=== PATIENT | female | born 1960 | race Caucasian/White ===

== ENCOUNTER 2018-05-02 20:31 | Emergency (ER) | payer BC, OTHER ==
[~2018-05-02] VITALS: Ht 165.1 cm; Wt 82.0 kg
[~2018-05-02 20:31] MED LIST: IBUP600T26 PO; ORPH100T PO
[2018-05-02 20:57] VITALS: BP 125/76; PULSE 75; RESP 16; TEMP 98.9; O2SAT 96
[2018-05-02] MEDS ORDERED: IBUPROFEN 400 MG TAB PO ONE (23:30)
[2018-05-02] MEDS ORDERED: NAPR-810 PO (23:42)
--- NOTE | 2018-05-02 23:42 | PD ---
HPI Chief Complaint: Injury Time Seen by Provider: 23:00 Travel History International Travel<30 days: No Contact w/Intl Traveler<30days: No Traveled to known affect area: No History of Present Illness HPI The patient is a 57 year old female who presents to the [facility] emergency department with a history of losing her balance while walking with a resident at the [place] [facility] prior to arrival. The patient reports that she works at the [place] [facility]. Her and the resident fell into a corner. The patient reports that she did not hit her head or lose consciousness. She denies having any neck pain, paresthesias, or weakness to her extremities. She reports that she injured her left knee by hyperflexing it and inverted her right ankle. She reports having right foot pain and anterior left knee pain. The patient denies having any swelling or bruising that she has noted, however she has not taken off her shoes. She reports that this happened just prior to arrival. On review of systems otherwise, the patient denies having any cough, congestion, chest pain, shortness of breath, abdominal pain, vomiting, diarrhea , urinary symptoms, or neurologic symptoms. [facility] Past Medical History Narrative Medical The patient's past medical history is reportedly significant for bilateral foot stress fractures many years ago. Anxiety: Yes Reproductive: Yes (bronchitis) Immunizations Current: Yes Tetanus Vaccination: > 5 Years Influenza Vaccination: No ?: Unknown Tubal Ligation: Yes (1990) Past Surgical History Narrative Surgical The patient's past surgical history is significant for bilateral tubal ligation. Gynecologic Surgery: Yes (tubal ligation) Social History Alcohol Use: Yes (TWICE A WEEK) Tobacco Use: Yes (11/09 PPD) Allergies-Medications (Allergen,Severity, Reaction): Coded Allergies: No Known Allergies (Verified Adverse Reaction, Unknown, 05/02/18) Reported Meds & Prescriptions Reported Meds & Active Scripts Active EC-Naprosyn (Naproxen) 500 Mg Tabdr 500 Mg PO BID PRN Ibuprofen 600 Mg Tab 600 Mg PO TID Norflex (Orphenadrine Citrate) 100 Mg Anjali 100 Mg PO BID Review of Systems Except as stated in HPI: all other systems reviewed are Neg General / Constitutional: No: Fever Eyes: No: Visual changes HENT: No: Headaches Cardiovascular: No: Chest Pain or Discomfort Respiratory: No: Shortness of Breath Gastrointestinal: No: Abdominal Pain Genitourinary: No: Dysuria Musculoskeletal: Positive: Myalgias, Arthralgias, Pain, No: Limited ROM, Edema Skin: No Rash Neurologic: No: Weakness Psychiatric: No: Depression Endocrine: No: Polydipsia Hematologic/Lymphatic: No: Easy Bruising Physical Exam Narrative General: The patient is a well-developed malnourished female in no acute distress. Head and Neck exam: Head is normocephalic atraumatic. Eyes: EOMI, pupils are equal round and reactive to light. Nose: Midline septum with pink mucous membranes Mouth: Dentition unremarkable. Moist mucus membranes. Posterior oropharynx is not erythematous. No tonsillar hypertrophy. Uvula midline. Airway patent. Neck: No spinous process tenderness to palpation. No step-off or crepitus. No erythema or ecchymosis. No palpable lymphadenopathy. No nuchal rigidity. No thyromegaly. Cardiovascular: Regular rate and rhythm without murmurs, gallops, or rubs. No pulse deficit to the extremities. Lungs: Clear to auscultation bilaterally. No wheezes, rhonchi, or rales. Abdomen: Soft, without tenderness to palpation in all 4 quadrants of the abdomen. No guarding, rebound, or rigidity. Normal bowel sounds are audible. No tenderness on palpation of McBurney's point. Extremities: No clubbing, cyanosis, or edema. 2+ pulses in all 4 extremities. The area of interest is the left knee and right foot and ankle. The patient has no swelling of either location noted. No ecchymosis or erythema. The patient on examination of the right foot reports having tenderness on palpation along the proximal aspect of the area between the third and fourth metatarsal. The patient also reports having some discomfort on palpation over the right lateral malleolus. The patient reports on examination of the left knee to have tenderness on palpation anteriorly. The patient has no ligament laxity on testing of the left knee and right ankle. The patient has intact sensation over all digits. The patient has less than 3 second capillary refill. The patient has full range of motion noted. Back: No spinous process tenderness to palpation. No costovertebral angle tenderness to palpation. Neurologic Exam: Grossly nonfocal. Skin Exam: No rash noted. Intact skin that is warm and dry. Data Data Last Documented VS Vital Signs Date Time Temp Pulse Resp B/P (MAP) Pulse Ox O2 Delivery O2 Flow Rate FiO2 05/02/18 20:57 98.9 75 16 125/76 (92) 96 Orders Orders Ankle, Limited (Ap&Lat) (05/02/18 23:29) Foot, Complete ([id number]) (05/02/18 23:29) Knee, Complete (4vws) (05/02/18 23:29) Ice/Cold Pack (05/02/18 23:29) Ibuprofen (Motrin) (05/02/18 23:30) Splint Or Brace Apply/Monitor (05/03/18 00:49) MDM Medical Decision Making Medical Screen Exam Complete: Yes Emergency Medical Condition: Yes Medical Record Reviewed: Yes Differential Diagnosis Fracture, versus contusion, versus sprain, versus internal derangement of the knee Narrative Course During the course of the patient's emergency department visit, the patient's history, examination, and differential diagnosis were reviewed with the patient. 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 The patient will have an x-ray of the right ankle, right foot, left knee. The patient was initially provided ibuprofen for pain, and ice pack for the areas of discomfort. Radiology studies were reviewed and remarkable for Last Impressions Knee X-Ray 05/02/182328 Signed Impressions: CONCLUSION: Mild joint effusion. Foot X-Ray 05/02/182328 Signed Impressions: CONCLUSION: No acute abnormality is seen. Ankle X-Ray 05/02/182328 Signed Impressions: CONCLUSION: No acute abnormality seen. Calcaneal spur. The patient reports that she has seen Dr. Gomez in the past, a local orthopedic physician and prefers to follow back up with him regarding her injuries. I explained that as she is under Workmen's Compensation she may be required to see a different orthopedic physician. I recommended rice therapy. She was instructed that if she continues to have pain after 1 week of anti- inflammatory pain medication and rice therapy, she should follow-up with an orthopedic physician for reexamination. The patient is resting comfortably and feels better, is alert and in no distress. The patient's results and examination findings were discussed with the patient. The history, exam, diagnostic testing, and current condition do not suggest any significant pathology to warrant further testing, continued ED treatment, admission, or surgical evaluation at this point. The vital signs have been stable. The patient does not have uncontrollable pain, intractable vomiting, or other significant symptoms. The patient's condition is stable and appropriate for discharge. The patient will pursue further outpatient evaluation with a primary care physician or other designated or consulting physician as indicated in the discharge instructions. The patient is instructed to report back to the emergency department immediately for reexamination in the mean time if she develops any new or worsening signs or symptoms. The patient expressed understanding and was agreeable with this plan. Diagnosis Primary Impression: Foot pain, right Additional Impressions: Knee pain, left Qualified Codes: M25.562 - Pain in left knee Fall Qualified Codes: W19.XXXA - Unspecified fall, initial encounter Referrals: Michael Gomez MD 1 week Orthopedist 1 week Patient Instructions: General Instructions Med/Other Pt SpecificInfo: Prescription(s) given Scripts Naproxen DR (EC-Naprosyn) 500 Mg Tabdr 500 MG PO BID Y for PAIN GREATER THAN 5, #10 TAB 0 Refills Prov: Suha Saini MD 05/02/18 Disposition: 01 DISCHARGE HOME Condition: Stable Suha Saini MD May 02, 2018 23:42
--- NOTE | 2018-05-03 00:21 | RADRPT ---
EXAM DATE: 05/02/2018 11:54 PM EDT AGE/SEX: 57 years / Female INDICATIONS: Fall, W/c. Pain to lateral side of right foot. CLINICAL DATA: This is the patient's initial encounter. Patient reports that signs and symptoms have been present for 1 day and indicates a pain score of 5/10. MEDICAL/SURGICAL HISTORY: None. None. COMPARISON: No prior exams available for comparison. FINDINGS: Bony structures are intact and in normal alignment. Osseous density is normal. Soft tissues are unre markable. No radiopaque foreign bodies seen. There is a calcaneal spur at the plantar aponeurosis at tachment site. CONCLUSION: No acute abnormality is seen. Electronically signed by: Alvaro Chavez MD 05/03/2018 12:20 AM EDT
--- NOTE | 2018-05-03 00:22 | RADRPT ---
EXAM DATE: 05/02/2018 11:57 PM EDT AGE/SEX: 57 years / Female INDICATIONS: Pain to anterior part of left knee, from fall W/C. CLINICAL DATA: This is the patient's initial encounter. Patient reports that signs and symptoms have been present for 1 day and indicates a pain score of 6/10. MEDICAL/SURGICAL HISTORY: None. None. COMPARISON: No prior exams available for comparison. FINDINGS: No fracture is seen. The knee joint is aligned. There is mild joint effusion. CONCLUSION: Mild joint effusion. Electronically signed by: Alvaro Chavez MD 05/03/2018 12:21 AM EDT
--- NOTE | 2018-05-03 00:22 | RADRPT ---
EXAM DATE: 05/02/2018 11:52 PM EDT AGE/SEX: 57 years / Female INDICATIONS: Fall W/C pain to lateral part of right ankle. CLINICAL DATA: This is the patient's initial encounter. Patient reports that signs and symptoms have been present for 1 day and indicates a pain score of 5/10. MEDICAL/SURGICAL HISTORY: None. None. COMPARISON: No prior exams available for comparison. FINDINGS: Bony structures are intact and in normal alignment. Joints are intact without dislocation or signifi cant arthropathy. There is a calcaneal spur at the plantar aponeurosis attachment site. Osseous densi ty is normal. Soft tissues are unremarkable. No radiopaque foreign bodies seen. CONCLUSION: No acute abnormality seen. Calcaneal spur. Electronically signed by: Alvaro Chavez MD 05/03/2018 12:21 AM EDT
== END 2018-05-03 02:35 | disposition home or self-care (01) ==
LOC: NEPC 20:31
DX: M79.671 Pain in right foot (principal); M25.562 Pain in left knee
CPT/HCPCS: 73564; 73600; 73630; 99283

== ENCOUNTER 2018-08-01 23:45 | Inpatient (IN) ==
--- NOTE | 2018-08-02 00:01 | ED ---
HPI General Chief Complaint: Shortness of Breath/Dyspnea Stated Complaint: sob Time Seen by Provider: 08/01/18 23:48 Source: patient and EMS Mode of arrival: EMS History of Present Illness The patient is a 58-year-old female that was diagnosed with COPD 2 years ago resented with complaint of shortness of breath. As per EMS she was 88% on room air they gave her Solu-Medrol and 7.5 mg of DuoNeb's. Patient is not on home O2 and just has pleural air at home. She quit smoking last week. Denies any fever or chills at home. MD Complaint: shortness of breath Onset (ago): day(s) (2) Severity: severe Consistency/Duration: constant Relieving factors: nothing Exacerbating factors: exertion Known history of: COPD Associated symptoms: denies other symptoms Treatment prior to arrival: oxygen, bronchodilator and other (Solu-Medrol 125 mg IV push) Related Data Home oxygen amount: none Home Medications Medication Instructions Recorded Confirmed Unable to Obtain Home Meds 08/02/18 08/02/18 Allergies Allergy/AdvReac Type Severity Reaction Status Date / Time No Known Allergies Allergy Verified 08/01/18 23:58 Review of Systems ROS: all other systems reviewed are negative [facility] Medical History Medical History COPD (chronic obstructive pulmonary disease) (Acute) Social History Social History Substance History: No History of Abuse Second Hand Smoke Exposure: Yes Smoking Status: Former smoker Tobacco Type: Cigarettes How Often Do You Have a Drink Containing Alcohol: 2 to 4 times a month Recent Travel in [facility] within the Last 8 Weeks: No Recent Out of Country Travel within the Last 8 Weeks: No Immunization History Tetanus Immunization: <5 Years Hx Influenza Vaccine This Season: Yes Exam Narrative Exam Narrative: GENERAL: Alert and oriented and distress from respiratory compromise SKIN: Focused skin assessment warm/dry. HEAD: Atraumatic. Normocephalic. EYES: Pupils equal and round. No scleral icterus. No injection or drainage. ENT: No nasal bleeding or discharge. Mucous membranes pink and moist. NECK: Trachea midline. No JVD. CARDIOVASCULAR: Tachycardia with regular rhythm. No murmur appreciated. RESPIRATORY: Use of accessory muscles with severe inspiratory expiratory wheezes diffusely bilaterally. Poor airflow. Tachypnea GASTROINTESTINAL: Abdomen soft, non-tender, nondistended. Hepatic and splenic margins not palpable. MUSCULOSKELETAL: No obvious deformities. No clubbing. No cyanosis. No edema. NEUROLOGICAL: Awake and alert. No obvious cranial nerve deficits. Motor grossly within normal limits. Normal speech. PSYCHIATRIC: Appropriate mood and affect; insight and judgment normal. Course Hospital Course: Patient with COPD exacerbation. Received nebs and steroids by EMS. Will get another nebulizing treatment here in the ED. Reevaluation(s) Reevaluation #1: Improved of her breathing treatments however she still is pretty tight and has end expiratory wheezes at this time. O2 saturations are 94 % on 3 L via nasal cannula. Time: 01:26 Initial Documented Vital Signs Pulse Rate 115 H 08/01/18 23:48 Respiratory Rate 22 08/01/18 23:48 Blood Pressure 158/70 H 08/01/18 23:48 Pulse Oximetry 95 08/01/18 23:48 Last Documented Vital Signs Pulse Rate 95 H 08/02/18 01:35 Respiratory Rate 18 08/02/18 01:35 Blood Pressure 158/70 H 08/01/18 23:53 Pulse Oximetry 93 L 08/02/18 01:35 Medical Decision Making MDM Narrative Medical decision making narrative: Patient with COPD exacerbation and minimal response to bronchodilators initially. No signs of infectious process at this time. She does have leukocytosis may be secondary to acute phase reactant. Does not appear septic. Gases reveal hypercapnia with a PCO2 of 44 ABGs 7.35. Suggestive of mild respiratory acidosis. Medical Screen Exam Complete: Yes Emergency Medical Condition: Yes Medical Records Medical records reviewed: Yes I reviewed the patient's medical records. Lab Data Lab results reviewed: Yes I reviewed the patient's lab results. Result diagrams: 08/02/18 00:00 08/02/18 00:00 Lab Results 08/02/18 08/02/18 08/02/18 Range/Units 00:00 00:00 00:00 WBC 14.1 H (4.0-11.0) th/mm3 RBC 4.59 (4.00-5.30) mil/mm3 Hgb 13.2 (11.6-15.3) gm/dL Hct 41.1 (35.0-46.0) % MCV 89.5 (80.0-100.0) fL MCH 28.7 (27.0-34.0) pg MCHC 32.1 (32.0-36.0) % RDW 14.4 (11.6-17.2) % Plt Count 314 (150-450) th/mm3 MPV 9.1 (7.0-11.0) fL Neut % (Auto) 70.7 H (16.0-70.0) % Lymph % (Auto) 20.4 (9.0-44.0) % Colbert % (Auto) 8.7 H (0.0-8.0) % Eos % (Auto) 0.1 (0.0-4.0) % Baso % (Auto) 0.1 (0.0-2.0) % Neut # (Auto) 10.0 H (1.8-7.7) th/mm3 Lymph # (Auto) 2.9 (1.0-4.8) th/mm3 Colbert # (Auto) 1.2 H (0.0-0.9) th/mm3 Eos # (Auto) 0.0 (0.0-0.4) th/mm3 Baso # (Auto) 0.0 (0.0-0.2) th/mm3 WBC Differential . Differential Comment Auto diff final PT 9.7 L (9.8-11.6) sec INR 1.0 Ratio APTT 25.3 (24.3-30.1) sec Puncture Site Patient Temperature O2 Saturation (90-100) % ABG pH (7.380-7.420) ABG pCO2 (38-42) mmHg ABG pO2 (61-120) mmHg ABG HCO3 (22-26) mmol/L ABG O2 Content (12.0-20.0) Vol % ABG Base Excess (-2-2) mmol/L ABG Methemoglobin (0-2) % Fortunato Test Hemoglobin (12.0-16.0) G/DL Carboxyhemoglobin (0-4) % O2 Delivery Device Liter Flow L/M Critical Value Sodium 145 (136-145) meq/L Potassium 3.3 L (3.5-5.1) meq/L Chloride 108 H (98-107) meq/L Carbon Dioxide 26.5 (21.0-32.0) meq/L Anion Gap 11 (5-15) meq/L BUN 16 (7-18) mg/dL Creatinine 0.89 (0.50-1.00) mg/dL Estimated GFR 66 L (>89) mL/min Random Glucose 110 H (74-106) mg/dL Calcium 9.1 (8.5-10.1) mg/dL Total Creatine Kinase 239 H (26-192) U/L CK-MB (CK-2) 2.0 (0.5-3.6) ng/mL CK-MB (CK-2) % 0.8 (0.0-4.0) % Troponin I Less than 0.02 L (0.02-0.05) ng/mL B-Natriuretic Peptide (0-100) pg/mL 08/02/18 08/02/18 Range/Units 00:00 00:03 WBC (4.0-11.0) th/mm3 RBC (4.00-5.30) mil/mm3 Hgb (11.6-15.3) gm/dL Hct (35.0-46.0) % MCV (80.0-100.0) fL MCH (27.0-34.0) pg MCHC (32.0-36.0) % RDW (11.6-17.2) % Plt Count (150-450) th/mm3 MPV (7.0-11.0) fL Neut % (Auto) (16.0-70.0) % Lymph % (Auto) (9.0-44.0) % Colbert % (Auto) (0.0-8.0) % Eos % (Auto) (0.0-4.0) % Baso % (Auto) (0.0-2.0) % Neut # (Auto) (1.8-7.7) th/mm3 Lymph # (Auto) (1.0-4.8) th/mm3 Colbert # (Auto) (0.0-0.9) th/mm3 Eos # (Auto) (0.0-0.4) th/mm3 Baso # (Auto) (0.0-0.2) th/mm3 WBC Differential Differential Comment PT (9.8-11.6) sec INR Ratio APTT (24.3-30.1) sec Puncture Site Right radial Patient Temperature 98.6 O2 Saturation 92 (90-100) % ABG pH 7.35 L (7.380-7.420) ABG pCO2 44 H (38-42) mmHg ABG pO2 70 (61-120) mmHg ABG HCO3 24 (22-26) mmol/L ABG O2 Content 16.7 (12.0-20.0) Vol % ABG Base Excess -0.8 (-2-2) mmol/L ABG Methemoglobin 0.7 (0-2) % Fortunato Test Present Hemoglobin 12.9 (12.0-16.0) G/DL Carboxyhemoglobin 0.9 (0-4) % O2 Delivery Device Nasal cannula Liter Flow 3.00 L/M Critical Value No Sodium (136-145) meq/L Potassium (3.5-5.1) meq/L Chloride (98-107) meq/L Carbon Dioxide (21.0-32.0) meq/L Anion Gap (5-15) meq/L BUN (7-18) mg/dL Creatinine (0.50-1.00) mg/dL Estimated GFR (>89) mL/min Random Glucose (74-106) mg/dL Calcium (8.5-10.1) mg/dL Total Creatine Kinase (26-192) U/L CK-MB (CK-2) (0.5-3.6) ng/mL CK-MB (CK-2) % (0.0-4.0) % Troponin I (0.02-0.05) ng/mL B-Natriuretic Peptide 51 (0-100) pg/mL Imaging Data Radiologist's impression: Chest X-Ray 08/01/18 23:53 CONCLUSION: No acute cardiopulmonary disease identified. ECG Data Attestation: I personally reviewed and interpreted this ECG as follows: Interpretation: Sinus tachycardia 106 bpm SC interval 170 ms QTc interval [address]-T wave abnormalities. Abnormal EKG. No STEMI Discharge Plan Discharge Disposition Patient Disposition: 30 Still Patient Discharge Condition Condition: Stable Discharge Details Diagnosis: Acute exacerbation of chronic obstructive pulmonary disease (COPD) Physicians Team ED Provider: Jose Pepe Primary Care Provider: UNKNOWN, Rxs /Orders / Referrals /Forms Prescriptions: No Action Unable to Obtain Home Meds RF: 0 Discharge Interventions Interventions: Vital Signs Last Done: 08/01/18 23:53 Status ED Status: Admitted Patient
[2018-08-02 00:20] LABS: ABG Base Excess -0.8 mmol/L (-2-2); ABG PCO2 44 mmHg (38-42); ABG PO2 70 mmHg (61-120)
[2018-08-02 00:24] LABS: Baso % (Auto) 0.1 % (0.0-2.0); Eos % (Auto) 0.1 % (0.0-4.0); Hematocrit 41.1 % (35.0-46.0); Hemoglobin 13.2 gm/dL (11.6-15.3); Lymph # (Auto) 2.9 th/mm3 (1.0-4.8); Lymph % (Auto) 20.4 % (9.0-44.0); Mean Corpuscular HGB Conc 32.1 % (32.0-36.0); Mean Corpuscular Hemoglobin 28.7 pg (27.0-34.0); Mean Corpuscular Volume 89.5 fL (80.0-100.0); Mean Platelet Volume 9.1 fL (7.0-11.0); Mono # (Auto) 1.2 th/mm3 (0.0-0.9); Mono % (Auto) 8.7 % (0.0-8.0); Neut % (Auto) 70.7 % (16.0-70.0); Platelet Count 314 th/mm3 (150-450); Red Blood Count 4.59 mil/mm3 (4.00-5.30); Red Cell Distribution Width 14.4 % (11.6-17.2); White Blood Count 14.1 th/mm3 (4.0-11.0)
--- NOTE | 2018-08-02 00:26 | XR ---
EXAM DATE: 08/02/2018 12:22 AM EDT AGE/SEX: 58 years / Female INDICATIONS: Short of breath. CLINICAL DATA: This is the patient's initial encounter. Patient reports that signs and symptoms have been present for 1 day and indicates a pain score of 0/10. MEDICAL/SURGICAL HISTORY: None. None. COMPARISON: [facility], XR CHEST PA AND LAT, 07/31/2018. . FINDINGS: Single AP view of the chest. The lungs are clear. Cardiomediastinal silhouette within nor mal limits. No evidence of pleural effusion or pneumothorax. CONCLUSION: No acute cardiopulmonary disease identified. Electronically signed by: Ifeanyi Hansen MD 08/02/2018 12:24 AM EDT
[2018-08-02 00:34] LABS: Anion Gap 11 meq/L (5-15); Blood Urea Nitrogen 16 mg/dL (7-18); Calcium 9.1 mg/dL (8.5-10.1); Carbon Dioxide 26.5 meq/L (21.0-32.0); Chloride 108 meq/L (98-107); Glomerular Filtration Rate 66 mL/min (>89); Glucose,Random 110 mg/dL (74-106); Potassium 3.3 meq/L (3.5-5.1); Sodium 145 meq/L (136-145)
[2018-08-02 00:38] LABS: Creatine Kinase 239 U/L (26-192)
[2018-08-02 00:50] LABS: CKMB Percent 0.8 % (0.0-4.0)
[2018-08-02 00:52] LABS: Activated Partial Thrombo Time 25.3 sec (24.3-30.1); Prothrombin Time 9.7 sec (9.8-11.6)
[2018-08-02] MEDS ORDERED: Bisacodyl 10 MG Supp RECTAL PRN (02:08)
[2018-08-02] MEDS: MethylPREDNISolone Sod Succinate Inj 125 MG/2 ML Vial IV.PUSH SCH ×4 (03:16→22:33)
--- NOTE | 2018-08-02 05:27 | P.HPIM ---
History of Present Illness Primary Care Physician: UNKNOWN History of Present Illness: 58-year-old female with a history of COPD who presents with a 2 day history of progressively worsening shortness of breath, cough productive of nonvisualized sputum. Patient went to urgent care 2 days ago and has been started on prednisone which has not been helping. Patient denies any fevers, chills, chest pain. She has a [id number] history of smoking cigarettes, however quit last week. Inpatient Certification: I certify that the inpatient services were ordered in accordance with Medicare regulations governing the order. This includes certification that hospital inpatient services are reasonable and necessary and in the case of services not specified as inpatient-only under 42 CFR 419.22(n), that they are appropriately provided as inpatient services in accordance to with the 2-midnight benchmark under 43 CFR 412.3(e) Estimated Total Length of Stay (Days): 3 Plans for Post Hospital Care: Home Review of Systems All other systems reviewed negative except as stated [facility] - History History Provided By: Patient - Medical History Medical History: Medical History (Last Reviewed 08/02/18 @ 00:00 by Jose Pepe DO) COPD (chronic obstructive pulmonary disease) - Surgical History Surgical History: Surgical History (Last Updated 08/02/18 @ 05:22 by Michael Macdonald MD) History of tubal ligation - Family History Family History: Family History (Last Updated 08/02/18 @ 05:22 by Michael Macdonald MD) Other Adopted - Tobacco History Second Hand Smoke Exposure: Yes Tobacco Use In Past 30 Days: Yes Smoking Status: Former smoker Tobacco Type: Cigarettes - Alcohol History How Often Do You Have a Drink Containing Alcohol: 2 to 4 times a month - Substance Use History Substance History: No History of Abuse - Travel History Recent Travel in the [place] Within the Last 8 Weeks: No Recent Travel Out of the Country Within the Last 8 Weeks: No - Immunization History Tetanus Immunization: <5 Years Hx Influenza Vaccine This Season: Yes Medications and Allergies Active Medications: Active Medications Al Hydroxide/Mg Hydroxide (Milk Of Raul Liq) 30 ml PO Q12H PRN PRN Reason: Mild Constipation Albuterol (Albuterol Neb (Prn)) 2.5 mg NEB Q2HR NEB PRN PRN Reason: SHORTNESS OF BREATH Albuterol (Duoneb Neb (Brittanie)) 1 ampul NEB Q6HR NEB BRITTANIE Last Admin: 08/02/18 04:05 Dose: 1 ampul Bisacodyl (Dulcolax Supp) 10 mg RECTAL DAILY PRN PRN Reason: SEVERE CONSITIPATION Lactulose (Lactulose Liq) 30 ml PO DAILY PRN PRN Reason: SEVERE CONSITIPATION Levofloxacin (Levaquin) 750 mg PO DAILY [facility] Methylprednisolone Sodium Succinate (Solumedrol Inj) 60 mg IV.PUSH Q6H [facility] Last Admin: 08/02/18 03:16 Dose: 60 mg Sennosides (Senokot) 17.2 mg PO Q12H PRN PRN Reason: Moderate Constipation Sodium Chloride (Ns Flush) 2 ml IV.FLUSH BID BRITTANIE Sodium Chloride (Ns Flush) 2 ml IV.FLUSH PRN PRN PRN Reason: FLUSH AFTER USING IV ACCESS Allergies Allergy/AdvReac Type Severity Reaction Status Date / Time No Known Allergies Allergy Verified 08/01/18 23:58 Home Medications Medication Instructions Recorded Confirmed Type Unable to Obtain Home Meds 08/02/18 08/02/18 History Exam Vital signs: Vital Signs 08/01/18 23:48 08/01/18 23:53 08/01/18 23:57 Pulse Rate 115 H 118 H Respiratory Rate 22 20 Blood Pressure 158/70 H 158/70 H Pulse Oximetry 95 95 94 L 08/02/18 00:13 08/02/18 01:35 08/02/18 03:18 Pulse Rate 95 H 84 Respiratory Rate 18 20 Blood Pressure 107/63 Pulse Oximetry 95 93 L 95 08/02/18 03:53 08/02/18 04:04 Pulse Rate 107 H 80 Respiratory Rate 20 18 Blood Pressure 107/53 L Pulse Oximetry 95 Intake & Output 08/01/18 08/01/18 08/02/18 06:59 18:59 06:59 Intake Total 240 / 240 Balance 240 / 240 Weight 81.647 kg Intake: Oral 240 / 240 Other: # Voids 1 Narrative: GENERAL: Patient sitting up in bed. Appears comfortable. SKIN: Warm and dry. HEAD: Atraumatic. Normocephalic. EYES: Pupils equal and round. No scleral icterus. No injection or drainage. ENT: No nasal bleeding or discharge. Mucous membranes pink and moist. NECK: Trachea midline. No JVD. CARDIOVASCULAR: Regular rate and rhythm. RESPIRATORY: No accessory muscle use. Wheezes bilaterally. Breath sounds equal bilaterally. GASTROINTESTINAL: Abdomen soft, non-tender, nondistended. Hepatic and splenic margins not palpable. MUSCULOSKELETAL: Extremities without clubbing, cyanosis, or edema. No obvious deformities. NEUROLOGICAL: Awake and alert. No obvious cranial nerve deficits. Motor grossly within normal limits. Five out of 5 muscle strength in the arms and legs. Normal speech. PSYCHIATRIC: Appropriate mood and affect; insight and judgment normal. Results - Labs CBC & Chem 7: 08/02/18 00:00 08/02/18 00:00 Labs: Short CBC 08/02/18 Range/Units 00:00 WBC 14.1 H (4.0-11.0) th/mm3 Hgb 13.2 (11.6-15.3) gm/dL Hct 41.1 (35.0-46.0) % Plt Count 314 (150-450) th/mm3 BMP 08/02/18 00:00 Sodium 145 Potassium 3.3 L Chloride 108 H Carbon Dioxide 26.5 BUN 16 Creatinine 0.89 Calcium 9.1 Cardiac Enzymes 08/02/18 Range/Units 00:00 Total Creatine Kinase 239 H (26-192) U/L CK-MB (CK-2) 2.0 (0.5-3.6) ng/mL Troponin I Less than 0.02 L (0.02-0.05) ng/mL - Imaging Impressions Chest X-Ray 08/01/18 23:53 CONCLUSION: No acute cardiopulmonary disease identified. Caprini VTE Risk Assessment Caprini VTE Risk Assessment: No/Low Risk (score <= 1) Caprini Risk Assessment Model: Point Value = 1 Point Value = 2 Point Value = 3 Point Value = 5 Age 41-60 Minor surgery BMI > 25 kg/m2 Swollen legs Varicose veins or History of unexplained or recurrent spontaneous Oral contraceptives or hormone replacement Sepsis (< 1 month) Serious lung disease, including pneumonia (< 1 month) Abnormal pulmonary function Acute myocardial infarction Congestive heart failure (< 1 month) History of inflammatory bowel disease Medical patient at bed rest Age 61-74 Arthroscopic surgery Major open surgery (> 45 min) Laparoscopic surgery (> 45 min) Malignancy Confined to bed (> 72 hours) Immobilizing plaster cast Central venous access Age >= 75 History of VTE Family history of VTE Factor V Leiden Prothrombin [id number] Lupus anticoagulant Anticardiolipin antibodies Elevated serum homocysteine Heparin-induced thrombocytopenia Other congenital or acquired thrombophilia Stroke (< 1 month) Elective arthroplasty Hip, pelvis, or leg fracture Acute spinal cord injury (< 1 month) Prophylaxis Regimen: Total Risk Factor Score Risk Level Prophylaxis Regimen 0-1 Low Early ambulation 2 Moderate Order ONE of the following: *Sequential Compression Device (SCD) *Heparin 5000 units SQ BID 3-4 Higher Order ONE of the following medications: *Heparin 5000 units SQ TID *Enoxaparin/Lovenox 40 mg SQ daily (WT < 150 kg, CrCl > 30 mL/min) *Enoxaparin/Lovenox 30 mg SQ daily (WT < 150 kg, CrCl > 10-29 mL/min) *Enoxaparin/Lovenox 30 mg SQ BID (WT < 150 kg, CrCl > 30 mL/min) AND/OR *Sequential Compression Device (SCD) 5 or more Highest Order ONE of the following medications: *Heparin 5000 units SQ TID (Preferred with Epidurals) *Enoxaparin/Lovenox 40 mg SQ daily (WT < 150 kg, CrCl > 30 mL/min) *Enoxaparin/Lovenox 30 mg SQ daily (WT < 150 kg, CrCl > 10-29 mL/min) *Enoxaparin/Lovenox 30 mg SQ BID (WT < 150 kg, CrCl > 30 mL/min) AND *Sequential Compression Device (SCD) Assessment and Plan - Plan //COPD exacerbation. //Hypercapnic respiratory failure = Marked wheezing on exam, however no acute findings on chest x-ray. PCO2 44 on ABG. = We will start on nebs, IV steroids = Continue to monitor for improvement. //Leukocytosis of 14. Could be secondary to recent steroids. Will monitor. //Hypokalemia. 3.3. Replace and monitor. Discussed Condition With: Patient, nurse, ED physician.
[2018-08-02] MEDS: levoFLOXacin 750 MG Tablet PO SCH (08:53)
[2018-08-02] MEDS ORDERED: levoFLOXacin 750 MG Tablet PO SCH (09:00)
[2018-08-02] MEDS: Acetaminophen 325 MG Tablet PO PRN ×3 (11:08→22:57)
[2018-08-02] MEDS: Benzonatate 100 MG Capsule PO PRN ×2 (14:53→22:57)
--- NOTE | 2018-08-02 18:20 | ECG ---
Date Performed: 08/02/2018 Time Performed: 00:19:32 PTAGE: 58 years EKG: SINUS TACHYCARDIA BORDERLINE LEFT AXIS DEVIATION Since the previous tracing, no significant change noted ABNORMAL RHYTHM ECG NO PREVIOUS TRACING DOCTOR: Julio Doss Interpretating Date/Time 08/02/2018 18:18:31
[2018-08-03] MEDS: MethylPREDNISolone Sod Succinate Inj 125 MG/2 ML Vial IV.PUSH SCH ×3 (03:40→17:36)
[2018-08-03 05:22] LABS: Hematocrit 36.2 % (35.0-46.0); Hemoglobin 11.9 gm/dL (11.6-15.3); Lymph # (Auto) 0.8 th/mm3 (1.0-4.8); Lymph % (Auto) 7.4 % (9.0-44.0); Mean Corpuscular HGB Conc 32.9 % (32.0-36.0); Mean Corpuscular Hemoglobin 28.8 pg (27.0-34.0); Mean Corpuscular Volume 87.6 fL (80.0-100.0); Mean Platelet Volume 9.5 fL (7.0-11.0); Mono # (Auto) 0.4 th/mm3 (0.0-0.9); Neut # (Auto) 9.4 th/mm3 (1.8-7.7); Neut % (Auto) 88.6 % (16.0-70.0); Platelet Count 304 th/mm3 (150-450); Red Blood Count 4.13 mil/mm3 (4.00-5.30); Red Cell Distribution Width 14.2 % (11.6-17.2); White Blood Count 10.6 th/mm3 (4.0-11.0)
[2018-08-03 05:54] LABS: Albumin 3.1 g/dL (3.4-5.0); Anion Gap 8 meq/L (5-15); Aspartate Aminotransferase 16 U/L (15-37); Blood Urea Nitrogen 16 mg/dL (7-18); Calcium 9.4 mg/dL (8.5-10.1); Carbon Dioxide 27.1 meq/L (21.0-32.0); Chloride 106 meq/L (98-107); Glomerular Filtration Rate Greater Than 89 mL/min (>89); Glucose,Random 147 mg/dL (74-106); Potassium 3.9 meq/L (3.5-5.1); Sodium 141 meq/L (136-145)
[2018-08-03 05:56] LABS: Alanine Aminotransferase 24 U/L (10-53)
[2018-08-03 05:58] LABS: Alkaline Phosphatase 94 U/L (45-117); Total Protein 7.2 g/dL (6.4-8.2)
--- NOTE | 2018-08-03 08:49 | P.PN ---
Subjective Interval history: Patient doing well overnight, reports improved SOB and chest tightness. Patient is tolerating PO, voiding/stooling well. Desires D/C home if possible. Physical Exam Vital signs: Vital Signs 08/02/18 09:28 08/02/18 11:18 08/02/18 15:31 Temperature 98.1 F 98.1 F Pulse Rate 66 81 59 L Respiratory Rate 16 20 16 Blood Pressure 113/67 111/76 Pulse Oximetry 96 89 L 88 L 08/02/18 19:40 08/02/18 19:47 08/03/18 00:00 Temperature 98.2 F 97.6 F Pulse Rate 81 56 L Respiratory Rate 16 17 Blood Pressure 140/65 124/62 Pulse Oximetry 96 91 L 92 L 08/03/18 03:45 08/03/18 08:04 Temperature 97.9 F 98.6 F Pulse Rate 56 L 83 Respiratory Rate 16 20 Blood Pressure 106/55 L 126/65 Pulse Oximetry 91 L 95 Intake & Output 08/02/18 08/03/18 08/03/18 18:59 06:59 18:59 Intake Total 600 / 600 600 / 600 Balance 600 / 600 600 / 600 Weight 81.647 kg 86.1 kg Intake: Oral 600 / 600 600 / 600 Other: # Voids 3 4 Weight On Admission 81.647 kg Narrative: GENERAL: well nourished female, in nad SKIN: Warm and dry. HEAD: Normocephalic. EYES: No scleral icterus. No injection or drainage. NECK: Supple, trachea midline. No JVD or lymphadenopathy. CARDIOVASCULAR: Regular rate and rhythm without murmurs, gallops, or rubs. RESPIRATORY: mild exp. wheezing BL. No accessory muscle use. GASTROINTESTINAL: Abdomen soft, non-tender, nondistended. MUSCULOSKELETAL: No cyanosis, or edema. BACK: Nontender without obvious deformity. No CVA tenderness. Results - Labs CBC & Chem 7: 08/03/18 04:25 08/03/18 04:25 Laboratory Results - last 24 hr 08/03/18 08/03/18 04:25 04:25 WBC 10.6 RBC 4.13 Hgb 11.9 Hct 36.2 MCV 87.6 MCH 28.8 MCHC 32.9 RDW 14.2 Plt Count 304 MPV 9.5 Neut % (Auto) 88.6 H Lymph % (Auto) 7.4 L [place] % (Auto) 4.0 Eos % (Auto) 0.0 Baso % (Auto) 0.0 Neut # (Auto) 9.4 H Lymph # (Auto) 0.8 L [place] # (Auto) 0.4 Eos # (Auto) 0.0 Baso # (Auto) 0.0 WBC Differential . Differential Comment Auto diff final Sodium 141 Potassium 3.9 Chloride 106 Carbon Dioxide 27.1 Anion Gap 8 BUN 16 Creatinine 0.65 Estimated GFR Greater than 89 Random Glucose 147 H Calcium 9.4 Total Bilirubin 0.2 AST 16 ALT 24 Alkaline Phosphatase 94 Total Protein 7.2 Albumin 3.1 L Assessment and Plan - Assessment (1) Acute exacerbation of chronic obstructive pulmonary disease (COPD) Code(s): J44.1 - Chronic obstructive pulmonary disease with (acute) exacerbation Status: Acute (2) Smoker Code(s): F17.200 - Nicotine dependence, unspecified, uncomplicated Status: Chronic - Plan 58 y/o CF with PMHx of Smoking admitted for IP mgmt of COPD exacerbation, HD#2 1. COPD EXACERBATION On 2L NC, not on home O2. Cont. Methylpred IV Q6hrs Cont. Levaquin Cont. Duonebs Q6hrs. 2. LEUKOCYTOSIS WBC 14.1 on admission, resolved today at 10.6 Afebrile Due to above Neg CXR 3. HYPOKALEMIA K3.3 on admission s/p txt resolved today at 3.9 4. DISPO: walking desat test today, possible D/C Code Status: full Discussed Condition With: full
[2018-08-03] MEDS: levoFLOXacin 750 MG Tablet PO SCH (10:31)
[2018-08-03 12:05] VITALS: PULSE 64
[2018-08-03 16:25] VITALS: BP 134/73; RESP 20; TEMP 98; O2SAT 96
[2018-08-03] MEDS: Benzonatate 100 MG Capsule PO PRN (17:36)
== END 2018-08-03 20:05 | disposition home or self-care (01) ==
LOC: NEPC 23:45 → NEDA 08-02 02:08 → NEPHCDU 08-02 06:30
PROVIDERS: ADMIT Family Medicine; ATTEND Family Medicine